=== PATIENT | female | born 2000 | race African-American/Black ===

== ENCOUNTER → 2023-10-22 09:17 | Outpatient (BNVA) | payer OTHER, SELFPAY | PROVIDERS: Visit Provider Physician Assistant Surgical ==

== ENCOUNTER 2023-10-23 08:12 | Outpatient (AMB) | payer OTHER, SELFPAY ==
--- NOTE | 2023-10-23 09:11 | MHC.OFFVISWM ---
Intake VS Expanded 10/23/23 09:31 Height 5 ft 3 in Weight 177 lb BMI 31.4 Body Fat % 36.7 Body Fat Mass 64.8 Fat Free Mass 112 Visceral Fat Rating 5 Body Water % 45.6 Body Water Mass 80.6 Basal Metabolic Rate/Score 1,583 Intake Visit Reasons: TV Gastric Balloon BMI 31.3 Allergies Fish Containing Products [FISH CONTAINING PRODUCTS] Allergy (Unknown, Verified 10/23/23 09:11) THROAT SWELLING Medication List - Last Reconciled 10/23/23 by Say Roche MD No Known Home Meds HPI TV Gastric Balloon BMI 31.3 HPI Details Start time: 9.07am, End time: 9.37am ?I spent 25 minutes speaking with the patient on the phone plus an additional 5 minutes reviewing and updating records for a total of 30 minutes HPI Comments History of Present Illness Details Wakes up: 7am, Sleeps: 1am Breakfast: skips Lunch: 12-1pm (rice, steak, chicken, beans) Dinner: 6-7pm (same as dinner) Snacks: 4pm (yogurt, fruits), 10pm (nuts, yogurt) Exercise: has a treadmill at home Fluids: Coffee: 1 cup day (sugar), tea: black tea with creamer (occasional), soda: Regular Coke 1 can per day, juice: apple/orange, ETOH: none PFSH Medical History (Updated 10/23/23 @ 09:33 by Say Roche MD) Obesity (BMI 30.0-34.9) Surgical History (Updated 10/23/23 @ 09:15 by Say Roche MD) History of delivery Hx of hernia repair Family History (Updated 10/22/23 @ 09:47 by Martha Shah CMA) Mother No problems noted. Father Diabetes Congenital heart problem Son No problems noted. (Updated 10/22/23 @ 09:47 by Martha Shah CMA) Alcohol intake: current Alcohol intake frequency: holidays/special occasions only Patient Tobacco Use Status: Never used Tobacco Assessment & Plan Assessment & Plan (1) Obesity: Code(s): E66.9 - Obesity, unspecified (2) BMI 31.0-31.9,adult: Code(s): Z68.31 - Body mass index [BMI] 31.0-31.9, adult (3) History of umbilical hernia repair: Code(s): Z98.890 - Other specified postprocedural states; Z87.19 - Personal history of other diseases of the digestive system (4) GERD (gastroesophageal reflux disease): Code(s): K21.9 - Gastro-esophageal reflux disease without esophagitis Plan: 1.? Plan for endogastric balloon therapy. We discussed the process in detailed including the need for endoscopy to place the balloon as well as to remove 6 months later under sedation or general anesthesia. We discussed the need to be on a PPI and a multivitamin throughout the balloon therapy. We discussed the potential risks and complications of the balloon including premature removal, premature balloon with potential balloon migration and bowel obstructions, gastric ulcer, GI bleeding, gastric or esophageal perforation, pancreatitis. Specifically for the premature balloon deflation we discussed the instillation of methylene blue into the balloon so in case of premature deflation the patient's urine would be discolored. We also discussed the potential symptoms the patient may experience the first few days until the stomach is fully adjusted to the balloon, including nausea, vomiting, abdominal cramping, GERD, dehydration that may require IV hydration, fatigue, lack of energy, excessive fullness, or burping. I reassured her that these symptoms are temporary and subside completely within the first week. We also discussed that the expected weight loss is about 25% of her initial weight which corresponds to about 58lbs. We also discussed the possibility of inadequate weight loss. I emphasized the importance of purchasing a body composition scale and the need for weekly weight measurements and communication with me. We also discussed the need for a proper nutritional plan that will include a combination of protein shakes, protein bars and a proper food-based meal. The patient will need to be on a liquid diet during the first week until the stomach is fully adjusted to the balloon as well as the last week before endoscopic removal so the stomach empties from any residual food. We also discussed the philosophy of the program that we use the balloon as a motivating factor to work with me and change slowly her lifestyle by improving her nutritional and exercise plan. This approach will maximize the weight loss from the balloon therapy and allow her to maintain her weight after the balloon is removed. Finally we discussed the importance of long-term follow-up in our practice in order to maintain her weight loss long-term. The patient is in agreement with the plan and wants to proceed with placement. 2. I gave her directions as to which body composition scale, protein shakes and bars she needs to buy prior to balloon placement. Telehealth Telehealth Location of provider rendering services: practice address Location of patient: address on file Patient Identification confirmed using: Name, : Yes Telehealth method: voice only Patient verbally consented to treatment: Yes Patient verbally consented to billing insurance company: Yes Patient informed of any privacy concerns related to visit: Yes Minutes spent on Phone/Video with Pt.: 30 Coding Level of Care Code Tele [facility] Pt Level 3 (77816) Diagnoses Obesity E66.9 BMI 31.0-31.9,adult Z68.31 History of umbilical hernia repair Z98.890; Z87.19 GERD (gastroesophageal reflux disease) K21.9 Time Spent (min) 30
[2023-10-23 09:31] VITALS: BMI 31.4
== END 2023-10-23 09:38 | disposition home or self-care (01) ==
LOC: HO.HBS 08:12
PROVIDERS: Visit Provider Surgery
DX: E66.9 Obesity, unspecified (principal); Z68.31 Body mass index [BMI] 31.0-31.9, adult; Z98.890 Other specified postprocedural states; Z87.19 Personal history of other diseases of the digestive system; K21.9 Gastro-esophageal reflux disease without esophagitis
CPT/HCPCS: 99203

== ENCOUNTER → 2023-10-23 08:12 | Outpatient (BNVA) | payer OTHER, SELFPAY | PROVIDERS: Visit Provider Surgery ==

== ENCOUNTER 2024-02-25 09:52 | Outpatient (AMB) | payer SELFPAY ==
[2024-02-25 09:54] VITALS: BP 122/78; PULSE 76; TEMP 37; O2SAT 98; BMI 31.4
--- NOTE | 2024-02-25 09:54 | MHC.OFFWIV ---
Intake Vital Signs 02/25/24 09:54 Height 5 ft 3 in Weight 177 lb BMI 31.4 BP 122/78 Blood Pressure Location Lt brachial Position Sitting Pulse 76 Pulse Source Pulse Oximeter Temp 98.6 F Temp Source Oral Pulse Oximetry (%) 98 Oxygen Delivery Method Room Air Intake Visit Reasons: [employer] yeast infection Intake Note: Pt presents to the office today for c/o yeast infection symptoms. Pt states she has itching and pain and thick white discharge that started last week. Pt denies burning with urination. Patient Tobacco Use Status: Never used Tobacco Allergies Fish Containing Products [FISH CONTAINING PRODUCTS] Allergy (Unknown, Verified 02/25/24 10:34) THROAT SWELLING HPI [employer] yeast infection HPI Details 24-year-old female presents to the office for a sick visit. She would like to be tested for bacterial vaginosis. Patient reports symptoms of whitish discharge and itching in the vaginal area. 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 No fevers or chills. [facility] [place] Medical History Obesity (BMI 30.0-34.9) Surgical History History of delivery Hx of hernia repair Family History Mother No problems noted. Father Diabetes Congenital heart problem Son No problems noted. Social History Alcohol intake: current Alcohol intake frequency: holidays/special occasions only Patient Tobacco Use Status: Never used Tobacco Physical Exam Vital Signs: Last Vital Signs Temp 98.6 F 02/25/24 09:54 Pulse 76 02/25/24 09:54 BP 122/78 02/25/24 09:54 Pulse Ox 98 02/25/24 09:54 Oxygen Delivery Method Room Air 02/25/24 09:54 BMI result Body Mass Index 31.4 General: Yes bladder normal to palpation and Yes no CVA tenderness Bimanual exam- vagina & uterus: bladder normal to palpation Back/Spine/Pelvis Back: no CVA tenderness Results AMB Urinalysis, Automated UA Leukoctes 0 Jose Rafael/uL Last Edit by Melany Plasencia MA on 02/25/24 10:06 UA Nitrite Negative Last Edit by Melany Plasencia MA on 02/25/24 10:06 UA Urobilinogen 0.2 mg/dL Last Edit by Melany Plasencia MA on 02/25/24 10:06 UA Protein 0 mg/dL Last Edit by Melany Plasencia MA on 02/25/24 10:06 UA pH 6.0 Last Edit by Melany Plasencia MA on 02/25/24 10:06 UA Blood 25 Lalo/uL Last Edit by Melany Plasencia MA on 02/25/24 10:06 UA Specific Addison 1.020 Last Edit by Melany Plasencia MA on 02/25/24 10:06 UA Ketone Negative Last Edit by Melany Plasencia MA on 02/25/24 10:06 UA Bilirubin 1 mg/dL Last Edit by Melany Plasencia MA on 02/25/24 10:06 UA Glucose 0 mg/dL Last Edit by Melany Plasencia MA on 02/25/24 10:06 Results Reviewed Results Reviewed: Laboratory Last Values Urine pH (Auto) 6.0 02/25/24 10:04 Specific Addison (Auto) 1.020 02/25/24 10:04 Urine Protein (Auto) 0 mg/dL 02/25/24 10:04 Glucose (UA)(Auto) 0 mg/dL 02/25/24 10:04 Urine Ketones (Auto) Negative 02/25/24 10:04 Urine Blood (Auto) 25 Lalo/uL 02/25/24 10:04 Urine Nitrite (Auto) Negative 02/25/24 10:04 Urine Bilirubin (Auto) 1 mg/dL 02/25/24 10:04 Urine Urobilinogen (Auto) 0.2 mg/dL 02/25/24 10:04 Leukocyte Esterase (Auto) 0 Jose Rafael/uL 02/25/24 10:04 Assessment & Plan Assessment & Plan (1) Vaginal candidiasis: Code(s): B37.31 - Acute candidiasis of vulva and vagina Plan: Urinalysis reviewed. Diflucan started empirically. Testing for bacterial vaginosis done. Will call with results. If symptoms do not improve to follow-up here. Orders: Orders AMB Urinalysis Automated Today Z13.9 - Encounter for screening, unspecified Medications: New fluconazole 150 mg PO Q3D 2 tabs 0RF 2 doses Coding Level of Care Code Est Pt Level 3 (30318) Diagnoses Vaginal candidiasis B37.31
== END 2024-02-25 11:30 | disposition home or self-care (01) ==
PROVIDERS: Visit Provider Internal Medicine
DX: Z13.9 Encounter for screening, unspecified (principal); B37.31 Acute candidiasis of vulva and vagina
CPT/HCPCS: 81003; 99213

== ENCOUNTER 2024-02-25 13:31 | Outpatient (REF) | payer OTHER, SELFPAY ==
[2024-02-26 10:18] LABS: BV Int Neg Control Negative (Negative); BV Int Pos Control Positive (Positive)
== END 2024-02-25 13:32 | disposition home or self-care (01) ==
LOC: HO.HMGCLNP 13:31
PROVIDERS: Visit Provider Internal Medicine
DX: Z11.9 Encounter for screening for infectious and parasitic diseases, unspecified (principal)
CPT/HCPCS: 87480; 87510; 87660

== ENCOUNTER 2024-02-25 13:41 | Outpatient (REF) | payer OTHER, SELFPAY | END 2024-02-25 13:42 | disposition home or self-care (01) | LOC: HO.LAB 13:41 | PROVIDERS: Visit Provider Internal Medicine | DX: Z13.89 Encounter for screening for other disorder (principal) ==